=== PATIENT | male | born 1950 | race Caucasian/White ===

== ENCOUNTER 2019-04-14 11:48 | Outpatient (REF) | payer MEDICARE, SELFPAY ==
[2019-04-14 21:57] LABS: Anion Gap 12.1 mmol/L (3-11); BUN 23 mg/dL (7-18); CO2 24.9 mmol/L (21.0-32.0); CREATININE 0.91 mg/dL (0.70-1.30); Calcium 9.4 mg/dL (8.5-10.1); Chloride 103 mmol/L (98-107); Glucose 90 mg/dL (70-100); Potassium 4.5 mmol/L (3.5-5.1); Sodium 140 mmol/L (136-145)
== END 2019-04-14 12:08 ==
LOC: NCHCN 11:48
PROVIDERS: Visit Provider Internal Medicine
DX: I10 Essential (primary) hypertension (principal)
CPT/HCPCS: 80048

== ENCOUNTER 2020-08-19 15:06 | Outpatient (REF) | payer MEDICARE, BC, SELFPAY ==
[2020-08-19 21:45] LABS: Anion Gap 5.8 mmol/L (3-11); BUN 21 mg/dL (7-18); CO2 27.2 mmol/L (21.0-32.0); CREATININE 1.11 mg/dL (0.70-1.30); Calcium 9.1 mg/dL (8.5-10.1); Calculated LDL 118 mg/dL (<100); Chloride 103 mmol/L (98-107); Cholesterol 230 mg/dL (<200); Glucose 120 mg/dL (74-106); HDL Cholesterol 98 mg/dL (40-60); Potassium 4.9 mmol/L (3.5-5.1); Sodium 136 mmol/L (136-145); Triglyceride 70 mg/dL (<150)
[2020-08-22 11:10] LABS: PSA, Screening 1.1 ng/mL (0.0-4.5)
== END 2020-08-19 15:26 ==
LOC: NCHCN 15:06
PROVIDERS: Visit Provider Internal Medicine
DX: I10 Essential (primary) hypertension (principal); Z13.6 Encounter for screening for cardiovascular disorders; Z12.5 Encounter for screening for malignant neoplasm of prostate
CPT/HCPCS: 80048; 80061; 84153

== ENCOUNTER 2021-08-11 15:18 | Outpatient (REF) | payer MEDICARE, SELFPAY ==
[2021-08-11 16:07] LABS: Anion Gap 5.1 mmol/L (3-11); BUN 18 mg/dL (7-18); CO2 28.9 mmol/L (21.0-32.0); CREATININE 0.9 mg/dL (0.70-1.30); Calcium 8.8 mg/dL (8.5-10.1); Chloride 103 mmol/L (98-107); Glucose 85 mg/dL (74-106); Potassium 4.8 mmol/L (3.5-5.1); Sodium 137 mmol/L (136-145)
== END 2021-08-11 15:19 | disposition home or self-care (01) ==
LOC: NCHCN 15:18
PROVIDERS: Visit Provider Internal Medicine
DX: I10 Essential (primary) hypertension (principal)
CPT/HCPCS: 80048

== ENCOUNTER 2022-08-16 13:56 | Outpatient (REF) | payer MEDICARE, SELFPAY ==
[2022-08-16 17:05] LABS: Anion Gap 9.2 mmol/L (3-11); BUN 17 mg/dL (7-18); CO2 25.8 mmol/L (21.0-32.0); CREATININE 0.9 mg/dL (0.70-1.30); Calculated LDL 124 mg/dL (<100); Chloride 101 mmol/L (98-107); Cholesterol 220 mg/dL (<200); Estimated GFR 91.31 (mL/min/1.73m2); Glucose 92 mg/dL (74-106); HDL Cholesterol 88 mg/dL (40-60); Sodium 136 mmol/L (136-145); Triglyceride 41 mg/dL (<150)
== END 2022-08-16 13:57 | disposition home or self-care (01) ==
LOC: NCHCN 13:56
PROVIDERS: Visit Provider Internal Medicine
DX: I10 Essential (primary) hypertension (principal); Z13.220 Encounter for screening for lipoid disorders; Z00.00 Encounter for general adult medical examination without abnormal findings
CPT/HCPCS: 80048; 80061

== ENCOUNTER 2022-08-24 14:14 | Outpatient (REF) | payer MEDICARE, SELFPAY ==
[2022-08-24 15:42] LABS: Abs Immature Grans 0.01 10^3/uL (0.0-0.06); Absolute Basophil Count 0.05 10^3/uL (0.0-0.2); Absolute Eosinophil Count 0.41 10^3/uL (0.0-0.7); Absolute Lymphocyte Count 1.89 10^3/uL (1.2-3.4); Absolute Monocyte Count 0.61 10^3/uL (0.1-0.8); Absolute Neutrophil Count 1.75 10^3/uL (1.2-6.7); Basophils % 1.1; Eosinophils % 8.7; HCT 40.5 % (40.0-50.0); HGB 13.6 g/dL (13.5-17.5); Immature Grans % 0.2; MCH 33.3 pg (27.0-33.0); MCHC 33.6 % (32.0-36.0); MCV 99 fL (80-95); MPV 10.3 fL (8.0-11.0); Monocytes % 12.9; Neutrophils % 37.1; Platelet Count 288 10^3/uL (130-400); RBC 4.08 10^6/uL (4.36-5.78); RDW 12.5 % (11.8-14.1); RDW-SD 45.3 fL; WBC 4.72 10^3/uL (4.4-10.8)
== END 2022-08-24 14:15 | disposition home or self-care (01) ==
LOC: NCHCN 14:14
PROVIDERS: Visit Provider Internal Medicine
DX: R53.83 Other fatigue (principal)
CPT/HCPCS: 85025

== ENCOUNTER 2023-09-27 18:14 | Outpatient (REF) | payer MEDICARE, SELFPAY ==
[2023-09-27 14:19] LABS: Anion Gap 8.9 mmol/L (3-11); BUN 22 mg/dL (7-18); CO2 26.1 mmol/L (21.0-32.0); Calcium 8.9 mg/dL (8.5-10.1); Calculated LDL 88 mg/dL (<100); Chloride 104 mmol/L (98-107); Cholesterol 201 mg/dL (<200); Estimated GFR 79.97 (mL/min/1.73m2); Glucose 92 mg/dL (74-106); HDL Cholesterol 108 mg/dL (40-60); Potassium 4.3 mmol/L (3.5-5.1); Sodium 139 mmol/L (136-145); Triglyceride 27 mg/dL (<150)
== END 2023-09-27 18:15 | disposition home or self-care (01) ==
LOC: NCHCN 18:14
PROVIDERS: Visit Provider Internal Medicine
DX: E78.5 Hyperlipidemia, unspecified (principal)
CPT/HCPCS: 80048; 80061

== ENCOUNTER 2024-09-18 16:30 | Outpatient (REF) | payer MEDICARE, SELFPAY ==
--- OUTSIDE RECORDS SUMMARY | 2024-09-18 16:32 | XMS_ITS | Data Portability ---
Author Organization [place] - [facility] Address [place] [address] Care Team Providers Care Store Operations Specialist Name Role Phone [facility] Physical Chemist [phone] Assessment Encounter Date Assessment Date Assessment LastModified by Organization Details LastModified Time 10/02/2023 10/02/2023 Patient presented to office today for their Medicare Annual Wellness Visit. Doing well with healthy habits, advised limiting beer/wine to avg 7 drinks per week. Emphasized preventive health measures and educated pt on fall prevention and community-based lifestyle interventions to help reduce health risks and promote healthy living. Personalized prevention plan (PPP) completed and reviewed with patient. Patient was given copy of PPP at conclusion of visit. [email or web address] Not available 10/02/2023 11:04:40 Plan of Treatment Reminders Order Date Submit Date Provider Last Modified By Organization Details Last Modified Time Details Appointments Nurse Visit 20 2023 02:20P M Anirudh Nursing Staff Not available Not available Not available Medicare Wellness 40 (Subs) 2023 08:20A M MANOJ GARCIA, Not available Not available Not available Lab lipid panel, serum 2022 023 [email or web address] [facility] (Registration ), [address] [place] [address] [place], [address], 09/27/2023 08:26:51 BMP, serum or plasma 2022 023 [facility] (Registration ), [address] [place] [address] [place], [address], 09/27/2023 12:08:37 CMP, serum or plasma 2022 024 [email or web address] [facility], [address] [facility], [place], [address], 10/02/2023 11:06:12 BMP, serum or plasma 2023 024 [email or web address] [facility] (Registration ), [address] [place] [address] [place], [address], 09/18/2024 15:29:57 Referral None recorded. Procedures colonosco py procedure (PROC) - due for screening colo in [address] General Surgery, [address] [place] [address], [address], 07/30/2024 09:45:24 Surgeries None recorded. Imaging None recorded. Medication Orders None recorded. Patient TargetsNo targets recorded. Patient Instructions Encounter Date Encounter Id Patient Instructions Last Modified By Organization Details Last Modified Time 10/02/2023 [id number] medicare preventive services guide (male 74 rs and under) Not available 10/02/2023 10:50:47 Try to limit alcohol to 1 drink per night Keep an eye on the blood pressure use debrox for the right ear Not available 10/02/2023 11:03:16 Reason for Referral None Reported. Results Created Date Observation Date Name Description Value Unit Range Abnormal Flag Note LastModifiedBy Organization Detail LastModifiedTime 09/27/2009/27/2023 BASIC METAB OLIC PANEL calcium 8.9 mg/dL 8.5-10 .1 normal Not Available [address] [place], [address] 09/27/2023 14:22:38 09/27/20 23 09/27/2023 BASIC METAB OLIC PANEL glucose 92 mg/dL 74-106 normal Not Available Jarek devi [address] [place], [address] 09/27/2023 14:22:38 09/27/20 23 09/27/2023 BASIC METAB OLIC PANEL BUN 22 mg/dL 7-18 high Not Available Jarek devi [address] [place], [address] 09/27/2023 14:22:38 09/27/20 23 09/27/2023 BASIC METAB OLIC PANEL creatinine 1.0 mg/dL 0.70-1 .30 normal Not Available [address] [place], [address] 09/27/2023 14:22:38 09/27/20 23 09/27/2023 BASIC METAB OLIC PANEL estimated GFR 79.97 mL/min /1.73m 2 The eGFR is calcu lated from a serum creat inine using the CKD-E PI 2020 equat ion. Other varia bles requi red for the equat ion are gende r and age; this equat ion does not inclu de a race coeff icien t. This equat ion has simil ar overa ll perfo rmanc e to previ ous equat ions excep t value s may diffe r, in parti cular , in patie nts with highe r value s of eGFR and young er-ag ed adult s. Not Available [address] [place], [address] 09/27/2023 14:22:38 09/27/20 23 09/27/2023 BASIC METAB OLIC PANEL sodium 139 mmol/ L 136-14 5 normal Not Available [address] [place], [address] 09/27/2023 14:22:38 09/27/20 23 09/27/2023 BASIC METAB OLIC PANEL potassium 4.3 mmol/ L 3.5-5. 1 normal Not Available [address] [place], [address] 09/27/2023 14:22:38 09/27/20 23 09/27/2023 BASIC METAB OLIC PANEL chloride 104 mmol/ L 98-107 normal Not Available [address] [place], [address] 09/27/2023 14:22:38 09/27/20 23 09/27/2023 BASIC METAB OLIC PANEL CO2 26.1 mmol/ L 21.0-3 2.0 normal Not Available [address] [place], [address] 09/27/2023 14:22:38 09/27/20 23 09/27/2023 BASIC METAB OLIC PANEL anion gap 8.9 mmol/ L 3-11 normal Not Available [address] [place], [address] 09/27/2023 14:22:38 09/27/20 23 09/27/2023 LIPID 2 cholesterol 201 mg/dL <200 high Not Available [address] [place], [address] 09/27/2023 14:22:39 09/27/20 23 09/27/2023 LIPID 2 triglyceride 27 mg/dL <150 Not Available [address] [place], [address] 09/27/2023 14:22:39 09/27/20 23 09/27/2023 LIPID 2 HDL cholesterol 108 mg/dL 40-60 Not Available [facility] [address] [place], [address] 09/27/2023 14:22:39 09/27/20 23 09/27/2023 LIPID 2 calculated LDL 88 mg/dL <100 Natio nal Naomi stero l Educa tion Progr am (NCEP -ATPI II) class ifica tions : Naomi stero l <200 mg/dL Kathy able Naomi stero l 200-2 39 mg/dL Borde rline High Naomi stero l >or=2 40 mg/dL High HDL <40 mg/dL Low HDL >or=6 0 mg/dL High LDL <100 mg/dL Optim al LDL 100-1 29 mg/dL Near Optim al/Ab ove Optim al LDL 130-1 59 mg/dL Borde rline High LDL 160-1 89 mg/dL High LDL >or=1 90 mg/dL Very High *The above refer ence range is for adult s 18 years or older . Not Available [address] [place], [address] 09/27/2023 14:22:39 09/27/20 23 09/27/2023 lipid panel , blood cholesterol, total, serum 201 mg/dL <200 high Not Available Not Available 05/29/2024 23:27:50 09/27/20 23 09/27/2023 lipid panel , blood HDL 108 mg/dL 40-60 Not Available Not Availa ble 05/29/2024 23:27:50 09/27/20 23 09/27/2023 lipid panel , blood LDL 88 mg/dL <100 Not Available Not Availa ble 05/29/2024 23:27:50 09/27/20 23 09/27/2023 lipid panel , blood triglyceride , 12H fasting, qn, serum or plasma 27 mg/dL <150 Not Available Not Available 11/2023 23:27:50 09/27/20 23 09/27/2023 gluco se, QN [mass /volu me], blood glucose ser 92 mg/dL 74-106 normal Not Available [facility] [address], [place], [address], 05/29/2024 23:27:49 09/27/20 23 09/27/2023 CMP, serum or plasm a aniongap 8.9 mmol/ L 3-11 normal Not Available Not Available 05/29/20 23:27:39 09/27/2009/27/2023 CMP, serum or plasm a BUN (blood urea nitrogen), serum or plasma 22 mg/dL 7-18 high Not Available Not Available 11/2023 23:27:39 09/27/20 23 09/27/2023 CMP, serum or plasm a calcium, qn, serum or plasma 8.9 mg/dL 8.5-10 .1 normal Not Available Not Available 05/29/2024 23:27:39 09/27/20 23 09/27/2023 CMP, serum or plasm a chloride, serum or plasma 104 mmol/ L 98-107 normal Not Available Not Available 05/29/20 23:27:39 09/27/20 23 09/27/2023 CMP, serum or plasm a CO2, (carbon dioxide), total, serum or plasma 26.1 mmol/ L 21.0-3 2.0 normal Not Available Not Available 05/29/2024 23:27:39 09/27/20 23 09/27/2023 CMP, serum or plasm a creatinine, serum or plasma 1.0 mg/dL 0.70-1 .30 normal Not Available Not Available 05/29/2024 23:27:39 09/27/20 23 09/27/2023 CMP, serum or plasm a eGFR 79.97 (?) mL/mi n/1.7 3m2 mL/min /1.73m 2 Not Available Not Available 05/29/2024 23:27:39 09/27/20 23 09/27/2023 CMP, serum or plasm a potassium, serum or plasma 4.3 mmol/ L 3.5-5. 1 normal Not Available Not Available 05/29/2024 23:27:39 09/27/20 23 09/27/2023 CMP, serum or plasm a sodium, serum or plasma 139 mmol/ L 136-14 5 normal Not Available Not Available 05/29/2024 23:27:39 07/10/20 24 09/06/2022 US, aorta No observ ation record ed. Not Available 07/10 01:04:09 07/10/20 24 12/10/2021 imagi ng/di agnos tic resul t No observ ation record ed. Not Available 07/10 01:04:10 07/10/20 24 12/07/2022 imagi ng/di agnos tic resul t No observ ation record ed. Not Available 07/10 01:04:12 07/10/20 24 12/26/2022 imagi ng/di agnos tic resul t No observ ation record ed. Not Available 07/10 01:04:13 07/10/20 24 01/23/2023 imagi ng/di agnos tic resul t No observ ation record ed. Not Available 07/10 01:04:14 07/10/20 24 12/06/2022 XR, shoul tanner, 2 or more view No observ ation record ed. Not Available 07/10 01:04:15 07/10/20 24 08/08/2022 XR, ankle , 3 or more view No observ ation record ed. Not Available 07/10 01:04:16 07/10/20 24 09/18/2021 imagi ng/di agnos tic resul t No observ ation record ed. Not Available 07/10 01:04:17 Result Notes None recorded. Problems Name Problem SNOMED Code Status Onset Date Resolution Date Notes Provider Name and Address Organization Details Recorded Time Allergy to bee venom 050870050 Active 2009 Problem Code: Z91.030; Problem Code Type: ICD-10; Not Available [facility] 3 04:14:25 [facility] hyperten kristen 26851491 Active 2016 Problem Code: I10; Problem Code Type: ICD-10; Not Available [facility] 3 04:14:25 Mitral valve regurgit ation 88064792 Active 2017 Problem Code: I34.0; Problem Code Type: ICD-10; Not Available [facility] 3 04:14:25 Mild intermit tent asthma 210582602 Active 2018 Problem Code: J45.20; Problem Code Type: ICD-10; Not Available [facility] 3 04:14:25 Erectile dysfunct ion 159285494 Active 2018 Problem Code: N52.9; Problem Code Type: ICD-10; Not Available [facility] 3 04:14:25 Screenin g for malignan t neoplasm of colon Completed 201810/29/2019 Problem Code: Z12.11; Problem Code Type: ICD-10; Not Available [facility] 3 04:14:25 Insect bite Completed 201903/19/2020 Not Available [facility] 3 04:14:26 Visual disturba nce 47344911 Active 2021 Problem Code: H53.9; Problem Code Type: ICD-10; Not Available [facility] 3 04:14:26 Pain of right shoulder joint 10478530544 406144 Active 2021 Problem Code: M25.511; Problem Code Type: ICD-10; Not Available [facility] 3 04:14:26 Adult health examinat ion Active 2021 Problem Code: Z00.00; Problem Code Type: ICD-10; Not Available [facility] 3 04:14:26 Hyperlip idemia 09027769 Active 2021 Problem Code: E78.5; Problem Code Type: ICD-10; Not Available [facility] 3 04:14:26 Lyme disease 32120630 Completed 201404/20/2019 Problem Code: A69.20; Problem Code Type: ICD-10; Not Available [facility] 3 04:14:31 Contact dermatit is 89481776 Completed 200907/24/2023 Problem Code: 692.89; Problem Code Type: ICD-9; Not Available [facility] 3 04:14:31 Screenin g for cardiova scular system disease Completed 201908/24/2022 Problem Code: Z13.6; Problem Code Type: ICD-10; Not Available [facility] 3 04:14:33 Hyperlip idemia screenin g Completed 202110/25/2022 Problem Code: Z13.220; Problem Code Type: ICD-10; Not Available [facility] 3 04:14:34 Heart murmur 71835877 Completed 201707/24/2023 Problem Code: R01.1; Problem Code Type: ICD-10; Not Available [facility] 3 04:14:37 Fracture of clavicle 05655294 Active 2022 MANOJ GARCIA MD [address], [place], [address] , [facility] 3 15:49:05 Problem Notes None recorded. Procedures Surgical History None recorded. Imaging Results Imaging Date Name Status LastModified by Organiz ation Details LastModified Time 09/06/2022 US, aorta completed Information no t available 07/10/2024 01:04:12/10/2021 imaging/diag nostic result completed Information not available 07/10/2024 01:04:10 12/07/2022 imaging/diag nostic result completed Information not available 07/10/2024 01:04:12 12/26/2022 imaging/diag nostic result completed Information not available 07/10/2024 01:04:13 01/23/2023 imaging/diag nostic result completed Information not available 07/10/2024 01:04:14 12/06/2022 XR, shoulder, 2 or more view completed Information not available 07/10/2024 01:04:15 08/08/2022 XR, ankle, 3 or more view completed Information not available 07/10/2024 01:04:16 09/18/2021 imaging/diag nostic result completed Information not available 07/10/2024 01:04:17 Procedure Notes None recorded. Medical Equipment None Reported. Allergies Allergen ID Allergen Name Allergen Category Reaction Reaction Severity Criticality Documentation Date Start Date Code Code System Note Provider Name and Address Organization Details Recorded Time 65023 neomycin sulfate medicatio n Not available Not available Not available 09/06/20232005 7300 RxNorm Not Available [facility] 16:25:57 Medications Name Sig Start Date Stop Date Status Note LastModified by Organization Details LastModified Time atorvastatin 20 mg tablet TAKE 1 TABLET BY MOUTH EVERY NIGHT 2023 active Not Available Not Available Not Avai lable lisinopril 20 mg tablet TAKE 1 TABLET BY MOUTH EVERY DAY 2023 active Not Available Not Available Not Avai lable sildenafil 100 mg tablet Take 1 tablet by mouth as needed 2021 active Not Available Not Available Not Avai lable hydrocodone-a cetaminophen 500-5 mg tablet 1 TID 07/27 completed Not Available Not Available Not Available cephalexin 500 mg tablet 1 TAB TID 07/27 completed Not Available Not Available Not Available doxycycline hyclate 100 mg tablet 1 twice daily 08/10 completed Not Available Not Available Not Available lisinopril 20 mg active Not Available Not Av ailable Not Available ProAir HFA 90 mcg/actuation aerosol inhaler Inhale 2 puffs by mouth every 4 hours as needed 2014 active Not Available Not Available Not Avai lable ProAir HFA 2p qid 2014 active Not Available Not Available Not Avai lable Vitals Date Recorded Body height Body temperature Oxygen saturation Oxygen saturation in Arterial blood by Pulse oximetry Heart rate Body mass index (BMI) Body weight Systolic blood pressure Diastolic blood pressure Provider Name and Address Organization Details Last Updated DateTime 3 178.44 cm 97.2 [degF] 99 % 99 % 81 /min 19.6 kg/m2 81552.0 3 g 150 mm[Hg] 84 mm[Hg] DALE CRAMER [place] [facility] 3 10:17:59 Social History Question Answer Notes LastModified by Organizat ion Details LastModified Time Tobacco Smoking Status Former Smoker smoked a pipe TIMO CRAMER [place] [facility], [facility] 10/02/2023 10:04:57 When Did You Quit Smoking? 16+yearssince lastcigarette [email or web address] Information not available 10/02/2023 Would You Say That, In General, Your Health Is Very Good [email or web address] Information not available 10/02/2023 How Often Does Anyone, Including Family, Physically Hurt You? Never [email or web address] Information not available 10/02/2023 How Often Does Anyone, Including Family, Insult Or Talk Down To You? Never [email or web address] Information no t available 10/02/2023 How Often Does Anyone, Including Family, Threaten You With Harm? Never [email or web address] Information not available 10/02/2023 How Often Does Anyone, Including Family, Scream Or Curse At You? Never [email or web address] Information not available 10/02/2023 Within The Past 12 Months, You Worried That Your Food Would Run Out Before You Got Money To Buy More. Never True [email or web address] Information n ot available 10/02/2023 Within The Past 12 Months, The Food You Bought Just Didn't Last And You Didn't Have Money To Get More. Never True [email or web address] Information n ot available 10/02/2023 How Hard Is It For You To Pay For The Very Basics Like Food, Housing, Medical Care, And Heating? Would You Say It Is: Not Hard At All [email or web address] Information not available 10/02/2023 In The Past 12 Months, Has Lack Of Reliable Transportation Kept You From Medical Appointments, Meetings, Work Or From Getting Things Needed For Daily Living? No [email or web address] Information not available 10/02/2023 What Is Your Housing Situation Today? I Have Housing. [email or web address] Information not available 10/02/2023 How Often In The Past Year Have You Used Marijuana (including Smoking, Vaping, Dabbing, Or Edibles)? Never [email or web address] Information not available 10/02/2023 How Often In The Past Year Have You Used Prescription Medications That Were Not Prescribed To You? Never [email or web address] Information n ot available 10/02/2023 How Often In The Past Year Have You Taken Your Own Prescription Medication More Than The Way It Was Prescribed Or For Different Reasons Than Its Intended Purpose? Never [email or web address] Information no t available 10/02/2023 How Often In The Past Year Have You Used Other Drugs (for Example, Heroin, Cocaine, Meth, Salvia, Inhalants)? Never [email or web address] Information not available 10/02/2023 During The Past Four Weeks Has Your Physical And Emotional Health Limited Your Social Activities With Family And Friends, Neighbors, Or Groups? Not At All [email or web address] Information not available 10/02/2023 During The Past Four Weeks, Was Someone Available To Help You If You Needed And Wanted Help? (For Example, If You [place] Very Nervous, Lonely, Or Blue; Got Sick And Had To Stay In Bed; Needed Someone To Talk To; Needed Help With Daily Chores; Or Needed Help Just Taking Care Of Yourself.) Yes- As Much As I Wanted [email or web address] Information not available 10/02/2023 During The Past Four Weeks, What Was The Hardest Physical Activity You Could Do For At Least 2 Minutes? Very Heavy [email or web address] Information not available 10/02/2023 Can You Get To Places Out Of Walking Distance Without Help? (For Example, Can You Travel Alone On Buses Or Taxis, Or Drive Your Own Car?) Yes [email or web address] Information not available 10/02/2023 Can You Go Shopping For Groceries Or Clothes Without Someone? s Help? Yes [email or web address] Information not available 10/02/2023 Can You Prepare Your Own Meals? Yes [email or web address] Information not available 10/02/2023 Can You Do Your Housework Without Help? Yes [email or web address] Information not available 10/02/2023 Because Of Any Health Problems, Do You Need The Help Of Another Person With Your Personal Care Needs Such As Eating, Bathing, Dressing, Or Getting Around The House? No [email or web address] Information not available 10/02/2023 Can You Handle Your Own Money Without Help? Yes [email or web address] Information not available 10/02/2023 Are You Having Difficulties Driving Your Car? No [email or web address] Information no t available 10/02/2023 Do You Always Fasten Your Seat Belt When You Are In A Car? Yes- Usually Information not available 10/02/2023 How Often During The Past Four Weeks Have You Been Bothered By Any Of The Following Problems? Falling Or Dizzy When Standing Up? Sometimes [email or web address] Information not available 10/02/2023 Trouble Eating Well? Never [email or web address] Information not available 10/02/2023 Teeth Or Denture Problems? Never [email or web address] Information not available 10/02/2023 Problems Using The Telephone? Never Information not available 10/02/2023 Tiredness Or Fatigue? Never [email or web address] Information not available 10/02/2023 Have You Had 2 Or More Falls Or Sustained An Injury With A Fall In The Last Year? Yes [email or web address] Information no t available 10/02/2023 Do You Have Difficulty With Walking Or Balance? No [email or web address] Information not available 10/02/2023 Do You Currently Use A Hearing Device? No [email or web address] Information not available 10/02/2023 Do You Exercise For About 20 Minutes Three Or More Days A Week? Yes- Most Of The Time [email or web address] Information not available 10/02/2023 Are There Any Safety Concerns In Your Home (see Attached CDC Pamphlet)? No [email or web address] Information not available 10/02/2023 How Often Do You Have Trouble Taking Medicines The Way You Have Been Told To Take Them? I Always Take Them As Prescribed [email or web address] Information not available 10/02/2023 How Confident Are You That You Can Control And Manage Most Of Your Health Problems? Very Confident Information not available 10/02/2023 Do You Currently Have Any Difficulty With Your Hearing? No [email or web address] Information not available 10/02/2023 Do You Or Have You Ever Used Any Other Forms Of Tobacco Or Nicotine? No [email or web address] Information not available 10/02/2023 Sex: Male Functional Status None recorded. Mental Status None recorded. Family History Relationship Description Onset Age of this Age Resolved Age Notes LastModified by Organization Details LastModified Time Mother Family history of stroke [email or web address] Not available 2022 03:50:08 Notes:*Problem: Mother: Dece ased, age 86, CVA Father: , age 96 Sisters: 1, younger and well Brothers: 1, younger and well Medical History No medical history recorded. Immunizations Vaccine Type Date Status Provider Name and Address Organization Details Recorded Time Td (adult), 2 Lf tetanus toxoid, preservative free, adsorbed 04/20/2019 completed Not Available [facility] 09/06/2023 05:20:09 zoster live 01/08/2013 completed Not Available [facility] 09/06/2023 05:20:10 Pneumococcal conjugate PCV 13 04/20/2019 completed Not Available [facility] 09/06/2023 05:20:10 Td(adult) unspecified formulation 11/07/2007 completed Not Available [facility] 09/06/2023 05:20:10 Influenza, adjuvanted, trivalent, PF 08/15/2018 completed Not Available [facility] 09/06/2023 05:20:11 zoster recombinant 01/28/2019 completed Not Available [facility] 09/06/2023 05:20:11 zoster recombinant 08/15/2018 completed Not Available [facility] 09/06/2023 05:20:11 zoster recombinant 09/16/2018 completed Not Available [facility] 09/06/2023 05:20:11 Influenza, high-dose, quadrivalent, PF 08/11/2021 completed Not Available [facility] 09/06/2023 05:20:11 Influenza, high-dose, quadrivalent, PF 08/19/2020 completed Not Available [facility] 09/06/2023 05:20:11 Influenza, high-dose, quadrivalent, PF 08/24/2022 completed Not Available [facility] 09/06/2023 05:20:11 COVID-19, mRNA, LNP-S, PF, 100 mcg/0.5mL dose or 50 mcg/0.25mL dose 12/28/2020 completed Not Available [facility] 09/06/2023 05:20:12 COVID-19, mRNA, LNP-S, PF, 100 mcg/0.5mL dose or 50 mcg/0.25mL dose 01/25/2021 completed Not Available [facility] 09/06/2023 05:20:12 COVID-19, mRNA, LNP-S, PF, 100 mcg/0.5mL dose or 50 mcg/0.25mL dose 08/21/2021 completed Not Available [facility] 09/06/2023 05:20:12 pneumococcal polysaccharide PPV23 08/19/2020 completed Not Available [facility] 2022 05:20:13 influenza, unspecified formulation 10/06/2019 completed Not Available [facility] 09/06/2023 05:20:13 influenza, unspecified formulation 07/28/2023 completed CARLOS HARRISON [facility] 10/02/2023 12:17:05 SARS-COV-2 (COVID-19) vaccine, UNSPECIFIED 07/28/2023 completed [facility] HARRISON [facility] 10/02/2023 12:17:16 Past Encounters Encounter ID Performer Location Encounter Start Date Encounter Closed Date Diagnosis/Indication Diagnosis SNOMED-CT Code Diagnosis ICD10 Code [id number] Roxy Hugginsd [address] [address] 09/27/2023 07:34:37 09/27/2023 08:00:57 Hyperlipidemia 10548584 E78.5 [id number] MANOJ GARCIA MD [address] [address] 10/02/2023 09:50:34 10/02/2023 11:00:07 Essential hypertension 21425476 I10 Hyperlipidemia 40245231 E78.5 Adult heal th examination 220207225 Z00.00 Mitral pamela ve regurgitation 64403182 I34.0 Screening for malignant neoplasm of colon 222549185 Z12.11 [id number] LAZ COLLIER LPN [facility] [address] [place] [address] 09/18/2024 13:59:51 09/18/2024 14:50:16 Essential hypertension 70112824 I10 Health Concerns Section Related Observation LastModified by Organization Detai ls LastModified Time None Recorded Concern Status LastModified by Organization Details LastModified Time None Recorded Advance Directives Directive None Recorded Payers Encounter Date Sequence Insurance Name Policy Number Policy Neff Covered Member ID Neff Member ID Guarantor Name 09/27/2023 1 [place] - [place]PO) [id number] Omar Avitia Armando [id number] Omar Roberts 10/02/2023 1 [place]) [id number] Omar Sadi Armando [id number] Omar Roberts 09/18/2024 1 [place]) [id number] Omar Avitia Armando [id number] Omar Sadi Armando Notes Date Note Type Note Provider Name and Address Organization Details Recorded Time 10/02/2023 text/html Medicare Annual Wellness VisitReported bypatient.Diet and Nutrition:follows recommended diet; raises most of their own food in garden Fracture Risk:broken clavicle both sides different incident each time Physical Activity:exercises on a regular basis; 2-3 hours each day, fitness class once a week as well Depression Risk:no loss of interest in activities; no feelings of worthlessness or guilt; no thoughts of suicide Orientation:oriente d to person, place, time Concentration and Memory:no decreased concentrating ability; no memory lapses or loss; does not forget words Speech/Motor difficulties:no speech difficulties; no difficulty expressing formulated concepts; no difficulty with fine manipulative tasks; no difficulty writing/copying Hearing:loss of hearing bilateral Vision:worse both distance and nearNotes:not interested in pursuing audiology eval at this time Omar is doing very well. Clavicle fractures healed well. curve correct worked well for ingrown toenail. No concerns. Remains very active with hiking, x-c skiing, no balance concerns.Usually has 2 beers or 2 glasses of wine nightly. 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 MANOJ GARCIA MD [address], [place], [address], [facility]. 10/02/2023 11:52:13
--- OUTSIDE RECORDS SUMMARY | 2024-09-18 16:32 | XMS_ITS ---
Author Organization Unknown Address [address] [place] [address] [phone] Phone Care Team Providers Care Rn Transport Name Role Phone REJI Manuel Attending Unavailable JOSE Dennis Primary Unavailable Social History Type Status Start Date End Date Code Code Syst em Smoking History Never smoker (Never Smoked) 568216582 SNOMED CT Sex Male Assessment You had the following problems:HYPERTENSIONHYPERCHOLESTEROLEMIA Hospital Discharge Instructions Should you have any questions prior to discharge, please contact a member of your healthcare team. If you have left the hospital and have any questions, please contact your primary care physician. Reason For Referral No Data Found Problems Problem Start Date Resolved Date Status Code Code System HYPERTENSION active 68240210 SNOMED- CT HYPERCHOLESTEROLEMIA active 57810212 SNOMED-CT Allergies and Adverse Reactions Allergy Substance Reaction Severity Start Date Concern Status Co de Code System NEOMYCIN Active 7299 RxNorm Plan of Treatment US ABDOMEN LIMITED 1 ORGAN 09/06/2022 US CAROTID BILAT 12/08/2021 Encounters Encounter Diagnosis Start Date Code Code Sys tem 10/25/2021 [id number] SNOMED-CT Personal Care Team Section Performer Name Performer Role Active Date Inactive Da te
--- OUTSIDE RECORDS SUMMARY | 2024-09-18 16:32 | XMS_ITS | Continuity of Care Document ---
Author Organization [place] - [facility] Address [address] [place] [address] Care Team Providers Care Concreting Supervisor Name Role Phone [facility] Line Walker [phone] Assessment No assessment recorded. Plan of Treatment Reminders Order Date Submit Date Provider Last Modified By Organization Details Last Modified Time Details Appointments Nurse Visit 2023 02:20P M [facility] Not available Not available Not available Medicare Wellness 40 (Subs) 2023 08:20A M MANOJ GARCIA, Not available Not available Not available Lab BMP, serum or plasma 2023 024 [email or web address] [facility] (Registration ), [address] [place] [address], [place], [address], 09/18/2024 15:29:57 Referral None recorded. Procedures None recorded. Surgeries None recorded. Imaging None recorded. Medication Orders None recorded. Patient TargetsNo targets recorded. Patient InstructionsNo instructions recorded. Reason for Referral None Reported. Problems Name Problem SNOMED Code Status Onset Date Resolution Date Notes Provider Name and Address Organization Details Recorded Time Allergy to bee venom 827536025 Active 2009 Problem Code: Z91.030; Problem Code Type: ICD-10; Not Available [facility] 3 04:14:25 [facility] kristen 46016735 Active 2016 Problem Code: I10; Problem Code Type: ICD-10; Not Available [facility] 3 04:14:25 Mitral valve regurgit ation 50230586 Active 2017 Problem Code: I34.0; Problem Code Type: ICD-10; Not Available [facility] 3 04:14:25 Mild intermit tent asthma 836862553 Active 2018 Problem Code: J45.20; Problem Code Type: ICD-10; Not Available [facility] 3 04:14:25 Erectile dysfunct ion 604800820 Active 2018 Problem Code: N52.9; Problem Code Type: ICD-10; Not Available [facility] 3 04:14:25 Screenin g for malignan t neoplasm of colon Completed 201810/29/2019 Problem Code: Z12.11; Problem Code Type: ICD-10; Not Available [facility] 3 04:14:25 Insect bite Completed 201903/19/2020 Not Available [facility] 3 04:14:26 Visual disturba nce 54285634 Active 2021 Problem Code: H53.9; Problem Code Type: ICD-10; Not Available [facility] 3 04:14:26 Pain of right shoulder joint 30625169169 905464 Active 2021 Problem Code: M25.511; Problem Code Type: ICD-10; Not Available [facility] 3 04:14:26 Adult health examinat ion Active 2021 Problem Code: Z00.00; Problem Code Type: ICD-10; Not Available [facility] 3 04:14:26 Hyperlip idemia 90887676 Active 2021 Problem Code: E78.5; Problem Code Type: ICD-10; Not Available [facility] 3 04:14:26 Lyme disease 40894869 Completed 201404/20/2019 Problem Code: A69.20; Problem Code Type: ICD-10; Not Available [facility] 3 04:14:31 Contact dermatit is 44977198 Completed 200907/24/2023 Problem Code: 692.89; Problem Code Type: ICD-9; Not Available [facility] 3 04:14:31 Screenin g for cardiova scular system disease Completed 201908/24/2022 Problem Code: Z13.6; Problem Code Type: ICD-10; Not Available [facility] 3 04:14:33 Hyperlip idemia screenin g Completed 202110/25/2022 Problem Code: Z13.220; Problem Code Type: ICD-10; Not Available [facility] 3 04:14:34 Heart murmur 42434463 Completed 201707/24/2023 Problem Code: R01.1; Problem Code Type: ICD-10; Not Available [facility] 3 04:14:37 Fracture of clavicle 95666302 Active 2022 MANOJ GARCIA MD [address], [place], [address] , [facility] 3 15:49:05 Problem Notes None recorded. Medical Equipment None Reported. Allergies Allergen ID Allergen Name Allergen Category Reaction Reaction Severity Criticality Documentation Date Start Date Code Code System Note Provider Name and Address Organization Details Recorded Time 22404 neomycin sulfate medicatio n Not available Not available Not available 09/06/20232005 7300 RxNorm Not Available [facility] 3 16:25:57 Medications Name Sig Start Date Stop [...] Available Not Available Not Avai lable Vitals None Recorded Social History Question Answer Notes LastModified by Organizat ion Details LastModified Time Tobacco Smoking Status Former Smoker smoked a pipe [facility]. 10/02/2023 10:04:57 When Did You Quit Smoking? 16+yearssince lastcigarricardo [email or web address] Information not available 10/02/2023 Would You Say That, In General, Your Health Is Very Good [email or web address] Information not available 10/02/2023 How Often Does Anyone, Including Family, Physically Hurt You? Never Information not available 10/02/2023 How Often Does Anyone, Including Family, Insult Or Talk Down To You? Never [email or web address] Information no t available 10/02/2023 How Often Does Anyone, Including Family, Threaten You With Harm? Never [email or web address] Information not available 10/02/2023 How Often Does Anyone, Including Family, Scream Or Curse At You? Never Information not available 10/02/2023 Within The Past 12 Months, You Worried That Your Food Would Run Out Before You Got Money To Buy More. Never True [email or web address] Information n ot available 10/02/2023 Within The Past 12 Months, The Food You Bought Just Didn't Last And You Didn't Have Money To Get More. Never True [email or web address] Information n ot available 10/02/2023 How Hard Is It For You To Pay For The Very Basics Like Food, Housing, Medical Care, And Heating? Would You Say It Is: Not Hard At All Information not available 10/02/2023 In The Past 12 Months, Has Lack Of Reliable Transportation Kept You From Medical Appointments, Meetings, Work Or From Getting Things Needed For Daily Living? No [email or web address] Information not available 10/02/2023 What Is Your Housing Situation Today? I Have Housing. [email or web address] Information not available 10/02/2023 How Often In The Past Year Have You Used Marijuana (including Smoking, Vaping, Dabbing, Or Edibles)? Never [email or web address] Information not available 10/02/2023 How Often In The Past Year Have You Used Prescription Medications That Were Not Prescribed To You? Never [email or web address] Information n ot available 10/02/2023 How Often In The Past Year Have You Taken Your Own Prescription Medication More Than The Way It Was Prescribed Or For Different Reasons Than Its Intended Purpose? Never [email or web address] Information no t available 10/02/2023 How Often In The Past Year Have You Used Other Drugs (for Example, Heroin, Cocaine, Meth, Salvia, Inhalants)? Never [email or web address] Information not available 10/02/2023 During The Past Four Weeks Has Your Physical And Emotional Health Limited Your Social Activities With Family And Friends, Neighbors, Or Groups? Not At All [email or web address] Information not available 10/02/2023 During The Past Four Weeks, Was Someone Available To Help You If You Needed And Wanted Help? (For Example, If You [place] Very Nervous, Lonely, Or Blue; Got Sick And Had To Stay In Bed; Needed Someone To Talk To; Needed Help With Daily Chores; Or Needed Help Just Taking Care Of Yourself.) Yes- As Much As I Wanted [email or web address] Information not available 10/02/2023 During The Past Four Weeks, What Was The Hardest Physical Activity You Could Do For At Least 2 Minutes? Very Heavy [email or web address] Information not available 10/02/2023 Can You Get To Places Out Of Walking Distance Without Help? (For Example, Can You Travel Alone On Buses Or Taxis, Or Drive Your Own Car?) Yes [email or web address] Information not available 10/02/2023 Can You Go Shopping For Groceries Or Clothes Without Someone? s Help? Yes Information not available 10/02/2023 Can You Prepare Your Own Meals? Yes [email or web address] Information not available 10/02/2023 Can You Do Your Housework Without Help? Yes [email or web address] Information not available 10/02/2023 Because Of Any Health Problems, Do You Need The Help Of Another Person With Your Personal Care Needs Such As Eating, Bathing, Dressing, Or Getting Around The House? No Information not available 10/02/2023 Can You Handle Your Own Money Without Help? Yes [email or web address] Information not available 10/02/2023 Are You Having Difficulties Driving Your Car? No [email or web address] Information no t available 10/02/2023 Do You Always Fasten Your Seat Belt When You Are In A Car? Yes- Usually [email or web address] Information not available 10/02/2023 How Often During The Past Four Weeks Have You Been Bothered By Any Of The Following Problems? Falling Or Dizzy When Standing Up? Sometimes Information not available 10/02/2023 Trouble Eating Well? Never Information not available 10/02/2023 Teeth Or Denture Problems? Never [email or web address] Information not available 10/02/2023 Problems Using The Telephone? Never [email or web address] Information not available 10/02/2023 Tiredness Or Fatigue? Never [email or web address] Information not available 10/02/2023 Have You Had 2 Or More Falls Or Sustained An Injury With A Fall In The Last Year? Yes [email or web address] Information no t available 10/02/2023 Do You Have Difficulty With Walking Or Balance? No [email or web address] Information not available 10/02/2023 Do You Currently Use A Hearing Device? No [email or web address] Information not available 10/02/2023 Do You Exercise For About 20 Minutes Three Or More Days A Week? Yes- Most Of The Time [email or web address] Information not available 10/02/2023 Are There Any Safety Concerns In Your Home (see Attached CDC Pamphlet)? No Information not available 10/02/2023 How Often Do You Have Trouble Taking Medicines The Way You Have Been Told To Take Them? I Always Take Them As Prescribed [email or web address] Information not available 10/02/2023 How Confident Are You That You Can Control And Manage Most Of Your Health Problems? Very Confident [email or web address] Information not available 10/02/2023 Do You Currently Have Any Difficulty With Your Hearing? No [email or web address] Information not available 10/02/2023 Do You Or Have You Ever Used Any Other Forms Of Tobacco Or Nicotine? No [email or web address] Information not available 10/02/2023 Sex: Male Functional [...] preservative free, adsorbed 04/20/2019 completed Not Available [facility] 09/06/2023 05:20:09 zoster live 01/08/2013 completed Not Available [facility] 09/06/2023 05:20:10 Pneumococcal conjugate PCV 13 04/20/2019 completed Not Available [facility] 09/06/2023 05:20:10 Td(adult) unspecified formulation 11/07/2007 completed Not Available [facility] 09/06/2023 05:20:10 Influenza, adjuvanted, trivalent, PF 08/15/2018 completed Not Available [facility] 09/06/2023 05:20:11 zoster recombinant 01/28/2019 completed Not Available [facility] 09/06/2023 05:20:11 zoster recombinant 08/15/2018 completed Not Available [facility] 09/06/2023 05:20:11 zoster recombinant 09/16/2018 completed Not Available [facility] 09/06/2023 05:20:11 Influenza, high-dose, quadrivalent, PF 08/11/2021 completed Not Available [facility] 09/06/2023 05:20:11 Influenza, high-dose, quadrivalent, PF 08/19/2020 completed Not Available [facility] 09/06/2023 05:20:11 Influenza, high-dose, quadrivalent, PF 08/24/2022 completed Not Available [facility] 09/06/2023 05:20:11 COVID-19, mRNA, LNP-S, PF, 100 mcg/0.5mL dose or 50 mcg/0.25mL dose 12/28/2020 completed Not Available [facility] 09/06/2023 05:20:12 COVID-19, mRNA, LNP-S, PF, 100 mcg/0.5mL dose or 50 mcg/0.25mL dose 01/25/2021 completed Not Available [facility] 09/06/2023 05:20:12 COVID-19, mRNA, LNP-S, PF, 100 mcg/0.5mL dose or 50 mcg/0.25mL dose 08/21/2021 completed Not Available [facility] 09/06/2023 05:20:12 pneumococcal polysaccharide PPV23 08/19/2020 completed Not Available [facility] 2022 05:20:13 influenza, unspecified formulation 10/06/2019 completed Not Available [facility] 09/06/2023 05:20:13 influenza, unspecified formulation 07/28/2023 completed [facility] 10/02/2023 12:17:05 SARS-COV-2 (COVID-19) vaccine, UNSPECIFIED 07/28/2023 completed [facility] 10/02/2023 12:17:16 Past Encounters Encounter ID Performer Location Encounter Start Date Encounter Closed Date Diagnosis/Indication Diagnosis SNOMED-CT Code Diagnosis ICD10 Code [id number] LAZ COLLIER LPN [address] [address] 09/18/2024 13:59:51 09/18/2024 14:50:16 Essential hypertension 66905608 I10 Health Concerns Section Related Observation LastModified by Organization Detai ls LastModified Time None Recorded Concern Status LastModified by Organization Details LastModified Time None Recorded Payers Encounter Date Sequence Insurance Name Policy Number Policy Neff Covered Member ID Neff Member ID Guarantor Name 09/18/2024 1 [place] - [place]PO) [id number] Omar Roberts [id number] Omar Roberts
--- OUTSIDE RECORDS SUMMARY | 2024-09-18 16:32 | XMS_ITS ---
Author Organization Unknown Address [address] [place] [address] [phone] Phone Care Team Providers Care Laydown Machine Operator Name Role Phone MANUELA Lopez Attending Unavailable REJI Manuel Physician Kilnman Unavailable JOSE Dennis Primary Unavailable Social History Type Status Start Date End Date Code Code Syst em Smoking History Never smoker (Never Smoked) 251014968 SNOMED CT Sex Male Assessment You had the following problems:HYPERTENSIONHYPERCHOLESTEROLEMIA Hospital Discharge Instructions Should you have any questions prior to discharge, please contact a member of your healthcare team. If you have left the hospital and have any questions, please contact your primary care physician. Reason For Referral No Data Found Procedures Procedure Name Date Status Code Code Syste m Tendon Sheath Incision 11/10/2021 completed 52471 CP T Problems Problem Start Date Resolved Date Status Code Code System HYPERTENSION active 34231632 SNOMED- CT HYPERCHOLESTEROLEMIA active 17926086 SNOMED-CT Allergies and Adverse Reactions Allergy Substance Reaction Severity Start Date Concern Status Co de Code System NEOMYCIN Active 7299 RxNorm Plan of Treatment US ABDOMEN LIMITED 1 ORGAN 09/06/2022 US CAROTID BILAT 12/08/2021 Encounters Encounter Diagnosis Start Date Code Code Sys tem Trigger finger, left middle finger 11/10/2021 SNOMED-CT Personal Care Team Section Performer Name Performer Role Active Date Inactive Da te
--- OUTSIDE RECORDS SUMMARY | 2024-09-18 16:33 | XMS_ITS ---
Author Organization Unknown Address [address] [place] [address] [phone] Phone Care Team Providers Care Fire Protection Engineering Technician Name Role Phone REJI Manuel Attending Unavailable JOSE Dennis Primary Unavailable Social History Type Status Start Date End Date Code Code Syst em Smoking History Never smoker (Never Smoked) 420133370 SNOMED CT Sex Male Assessment You had the following problems:HYPERTENSIONHYPERCHOLESTEROLEMIA Hospital Discharge Instructions Should you have any questions prior to discharge, please contact a member of your healthcare team. If you have left the hospital and have any questions, please contact your primary care physician. Reason For Referral No Data Found Problems Problem Start Date Resolved Date Status Code Code System HYPERTENSION active 63184073 SNOMED- CT HYPERCHOLESTEROLEMIA active 11944702 SNOMED-CT Allergies and Adverse Reactions Allergy Substance Reaction Severity Start Date Concern Status Co de Code System NEOMYCIN Active 7299 RxNorm Plan of Treatment US ABDOMEN LIMITED 1 ORGAN 09/06/2022 US CAROTID BILAT 12/08/2021 Encounters Encounter Diagnosis Start Date Code Code Sys tem Removal of suture 11/22/2021 06206740 SNOMED-CT Personal Care Team Section Performer Name Performer Role Active Date Inactive Da te
--- OUTSIDE RECORDS SUMMARY | 2024-09-18 16:33 | XMS_ITS ---
Author Organization Unknown Address [address] [place] [address] [phone] Phone Care Team Providers Care Glass Maker Name Role Phone MANUELA Lopez Attending Unavailable JOSE Dennis Primary Unavailable [facility] Date/Time: 11/08/2021 12:29 [facility] ID: [id number] [address] [place] [address], [id number] LOINC: 54526-4 Test Value Unit Reference Range Code Code System Flag Tier- SYMPTOMS SARS COV2 RNA: NEGATIVE REFERENCE RANGE: NEGAT 08823-3 L OINC Social History Type Status Start Date End Date Code Code Syst em Smoking History Never smoker (Never Smoked) 748855365 SNOMED CT Sex Male Assessment You had the following problems:HYPERTENSIONHYPERCHOLESTEROLEMIA Hospital Discharge Instructions Should you have any questions prior to discharge, please contact a member of your healthcare team. If you have left the hospital and have any questions, please contact your primary care physician. Reason For Referral No Data Found Problems Problem Start Date Resolved Date Status Code Code System HYPERTENSION active 97903969 SNOMED- CT HYPERCHOLESTEROLEMIA active 68631061 SNOMED-CT Allergies and Adverse Reactions Allergy Substance Reaction Severity Start Date Concern Status Co de Code System NEOMYCIN Active 7299 RxNorm Plan of Treatment US ABDOMEN LIMITED 1 ORGAN 09/06/2022 US CAROTID BILAT 12/08/2021 Encounters Encounter Diagnosis Start Date Code Code Sys tem Exposure to SARS-CoV-2 11/08/2021 323850195 SNOME D-CT Personal Care Team Section Performer Name Performer Role Active Date Inactive Da te
--- OUTSIDE RECORDS SUMMARY | 2024-09-18 16:34 | XMS_ITS ---
Author Organization Unknown Address [address] [place] [address] [phone] Phone Care Team Providers Care Senior Property Accountant Name Role Phone JOSE Dennis Attending Unavailable Results US AORTA SCREENING - Complet ed: 09/06/2022 09:24 LOINC: [facility] [place], [place] [address] PACS SAP BI ARCHITECT REPORT Patient Name: DILAN MOHAN MRN: Sex: : Age: [id number] M [id number] Account: Accession: Admit: StayType: [id number] 09/06/2022 O/P Ordered: Order ID: Submitted: Ordering Provider: 09/06/2022 08:30 [id number] [facility] MANOJ GARCIA Completed: Technologist: Resulted: 09/06/2022 09:24 ER 09/06/2022 09:36 Study Description: US AORTA SCREENING Study Reason:FORMER SMOKER TECHNIQUE: Dedicated Ultrasound of abdominal aorta COMPARISON: No exams were available for comparison FINDINGS: ABDOMINAL AORTA: There is no evidence of abdominal aortic aneurysm. Maximum diameter of the abdominal aorta is 2.4 cm proximally and the abdominal aortic distally in normal fashion. COMMON ILIAC ARTERIES: Visualized common iliac arteries are upper normal diameter. IMPRESSION: No evidence of abdominal aortic aneurysm. Report Digitally Signed by Braulio Benjamin on 09/06/2022 09:36 AM EST Social History Type Status Start Date End Date Code Code Syst em Smoking History Never smoker (Never Smoked) 007106157 SNOMED CT Sex Male Assessment You had the following problems:HYPERTENSIONHYPERCHOLESTEROLEMIA Hospital Discharge Instructions Should you have any questions prior to discharge, please contact a member of your healthcare team. If you have left the hospital and have any questions, please contact your primary care physician. Reason For Referral No Data Found Problems Problem Start Date Resolved Date Status Code Code System HYPERTENSION active 10266236 SNOMED- CT HYPERCHOLESTEROLEMIA active 38830830 SNOMED-CT Allergies and Adverse Reactions Allergy Substance Reaction Severity Start Date Concern Status Co de Code System NEOMYCIN Active 7299 RxNorm Plan of Treatment US ABDOMEN LIMITED 1 ORGAN 09/06/2022 US CAROTID BILAT 12/08/2021 Encounters Encounter Diagnosis Start Date Code Code Sys tem Encounter for screening for cardiovascular disorders 1 11/06/2021 SNOMED-CT Personal Care Team Section Performer Name Performer Role Active Date Inactive Da te
--- OUTSIDE RECORDS SUMMARY | 2024-09-18 16:34 | XMS_ITS ---
Author Organization Unknown Address [address] [place] [address] [phone] Phone Care Team Providers Care Degreasing Solution Mixer Name Role Phone CESARCORNELIA ARANDA Sonny Attending Unavailable Results US EXTRACRANIAL UNI LTD STUD Y - Completed: 12/08/2021 13:56 LOINC: CAROTID ULTRASOUND: Castaneda scale, color, and Doppler imaging of the carotid arteries on both sides of the neck was performed. Plaque is noted at the level of the carotid bulbs and proximal internal carotid arteries bilaterally. This both calcified and noncalcified. There are no associated significantly elevated velocities. Flow in both vertebral arteries was demonstrated to be antegrade. IMPRESSION: 1. There is plaque at the level of both carotid bulbs and proximal ICAs but without elevated velocities implying that amount of stenosis is estimated to be mild, less than 50%. 2. Flow is demonstrated to be antegrade in both vertebral arteries. Dictated by: JUDIT HERNANDEZ MD Transcribed by: PETER 12/09/2115:42 D Wednesday, December 08, 2021 3:31:17 PM [id number] Electronically Reviewed and Signed By: CHRIS HERNANDEZ MD 12/10/21 11:38 Copy for: 185 HEALTH INFORMATION MGMT Social History Type Status Start Date End Date Code Code Syst em Smoking History Never smoker (Never Smoked) 545216815 SNOMED CT Sex Male Assessment You had the following problems:HYPERTENSIONHYPERCHOLESTEROLEMIA Hospital Discharge Instructions Should you have any questions prior to discharge, please contact a member of your healthcare team. If you have left the hospital and have any questions, please contact your primary care physician. Reason For Referral No Data Found Problems Problem Start Date Resolved Date Status Code Code System HYPERTENSION active 22084674 SNOMED- CT HYPERCHOLESTEROLEMIA active 03628709 SNOMED-CT Allergies and Adverse Reactions Allergy Substance Reaction Severity Start Date Concern Status Co de Code System NEOMYCIN Active 7299 RxNorm Plan of Treatment US ABDOMEN LIMITED 1 ORGAN 09/06/2022 US CAROTID BILAT 12/08/2021 Encounters Encounter Diagnosis Start Date Code Code Sys tem Bilateral carotid artery occlusion 12/08/2021 752606 005 SNOMED-CT Personal Care Team Section Performer Name Performer Role Active Date Inactive Da te
--- OUTSIDE RECORDS SUMMARY | 2024-09-18 16:35 | XMS_ITS ---
Author Organization Unknown Address [address] [place] [address] [phone] Phone Care Team Providers Care Metal Alloy Scientist Name Role Phone AGUSTIN Carter Attending Unavailable JOSE Dennis Primary Unavailable Results XR CLAVICLE COMPLETE RIGHT - Completed: 12/26/2022 10:03 [facility] [place], [place] [address] PACS EXPERIMENTAL ELECTRONICS DEVELOPER REPORT Patient Name: DILAN MOHAN MRN: Sex: : Age: [id number] M 1950 72 Account: Accession: Admit: StayType: [id number] 12/26/2022 CLINIC Ordered: Order ID: Submitted: Ordering Provider: 12/26/2022 09:59 [id number] [facility] MELITON VELEZ Completed: Technologist: Resulted: 12/26/2022 10:03 CHARITY 12/26/2022 15:43 Study Description: XR CLAVICLE COMPLETE RIGHT Study Reason: Pain 2D digital imaging was performed. COMPARISON: Prior x-rays 12/07/2022 FINDINGS: Again noted is the fracture site in the lateral aspect of the right clavicle. No further displacement. Appearance is unchanged. No offset of the AC joint. Again noted is evidence of previous surgery in the ipsilateral shoulder with 3 fixation devices in the inferior osseous glenoid again noted. IMPRESSION: Stable appearance of the lateral clavicular fracture site Report Digitally Signed by Braulio Benjamin on 12/26/2022 03:43 PM EST Social History Type Status Start Date End Date Code Code Syst em Smoking History Never smoker (Never Smoked) 340574140 SNOMED CT Sex Male Assessment You had the following problems:HYPERTENSIONHYPERCHOLESTEROLEMIA Hospital Discharge Instructions Should you have any questions prior to discharge, please contact a member of your healthcare team. If you have left the hospital and have any questions, please contact your primary care physician. Reason For Referral No Data Found Problems Problem Start Date Resolved Date Status Code Code System HYPERTENSION active 37828910 SNOMED- CT HYPERCHOLESTEROLEMIA active 07302423 SNOMED-CT Allergies and Adverse Reactions Allergy Substance Reaction Severity Start Date Concern Status Co de Code System NEOMYCIN Active 7299 RxNorm Plan of Treatment US ABDOMEN LIMITED 1 ORGAN 09/06/2022 US CAROTID BILAT 12/08/2021 Encounters Encounter Diagnosis Start Date Code Code Sys tem Fracture of acromial end of clavicle 12/26/2022 7860 7406 SNOMED-CT Personal Care Team Section Performer Name Performer Role Active Date Inactive Da te
--- OUTSIDE RECORDS SUMMARY | 2024-09-18 16:35 | XMS_ITS | Encounter Summary ---
Author Organization [facility] Address [address] [place] [address] Care Team Providers Care Manager Trainee Name Role Phone Emerson Milton MD Primary Care Provide r Encounter Details Date Type Department Care Team (Late st Contact Info) Description 08/20/2020 Lab Requisition [facility] Pathology & Laboratory Medicine - [facility] [address], [place] [phone] Outr Resulting Lab, Provider Social History Tobacco Use Types Packs/Day Years Used Date Smoking Tobacco: Never Assessed Sex and Gender Information Value Date Recorded Sex Assigned at Not on file Legal Sex Male 18:04 EST Gender Identity Not on file Sexual Orientation Not on file documented as of this encounter Plan of Treatment Not on file documented as of this encounter Procedures Procedure Name Priority Date/Time Associated Diagnosis Comments PSA TOTAL, DIAGNOSTIC Routine 08/19/2020 14:05 EDT documented in this encounter Results * PSA TOTAL, DIAGNOSTIC (08/19/2020 14:05 EDT) PSA 1.1 0.0 - 4.5 ng/mL 08/22/2020 11:05 EDT [facility] Blood VENOUS BLOOD / Unknown 08/19/2020 14:05 EDT 08/21/2020 16:19 EDT Narrative [facility] - 08/22/2020 11:05 EDT NOTE: Serum PSA concentration should not be interpreted as absolute evidence for the presence or absence of malignant disease. Assayed on Siemens ADVIA Centaur XPT using chemiluminescent technology.??Values obtained by using different assay methods cannot be used interchangeably. us Provider Outr Resulting Lab CHEMISTRY & BLOOD GA S ORDERABLES Final Result [facility] [address] [place] [address] documented in this encounter Visit Diagnoses Not on filedocumented in this encounter Care Teams Manager Trainee Relationship Specialty Start Date End Date Emerson Milton MD PCP - General 09/19/15 documented as of this encounter
--- OUTSIDE RECORDS SUMMARY | 2024-09-18 16:35 | XMS_ITS ---
Author Organization Unknown Address [address] [place] [address] [phone] Phone Care Team Providers Care Operating Room Technologist Name Role Phone AGUSTIN Carter Attending Unavailable JOSE Dennis Primary Unavailable Results XR CLAVICLE COMPLETE RIGHT - Completed: 01/23/2023 13:32 LOINC: [facility] [place], [place] [address] PACS OIL PAINT SHADER REPORT Patient Name: DILAN MOHAN MRN: Sex: : Age: [id number] M 1950 72 Account: Accession: Admit: StayType: [id number] 01/23/2023 CLINIC Ordered: Order ID: Submitted: Ordering Provider: 01/23/2023 08:03 [id number] [facility] MELITON VELEZ Completed: Technologist: Resulted: 01/23/2023 13:32 NIRANJAN 01/23/2023 13:37 Study Description: XR CLAVICLE COMPLETE RIGHT Study Reason: RT CLAVICLE FX F/U 2 Views TECHNIQUE: 2D digital imaging was performed. COMPARISON: 26 December 2022 FINDINGS: There has been no change in the alignment of the distal radial fracture. No new findings. Report Digitally Signed by Daisy Ashley on 01/23/2023 01:37 PM EDT Social History Type Status Start Date End Date Code Code Syst em Smoking History Never smoker (Never Smoked) 421050540 SNOMED CT Sex Male Assessment You had the following problems:HYPERTENSIONHYPERCHOLESTEROLEMIA Hospital Discharge Instructions Should you have any questions prior to discharge, please contact a member of your healthcare team. If you have left the hospital and have any questions, please contact your primary care physician. Reason For Referral No Data Found Problems Problem Start Date Resolved Date Status Code Code System HYPERTENSION active 48003469 SNOMED- CT HYPERCHOLESTEROLEMIA active 75867875 SNOMED-CT Allergies and Adverse Reactions Allergy Substance Reaction Severity Start Date Concern Status Co de Code System NEOMYCIN Active 7299 RxNorm Plan of Treatment US ABDOMEN LIMITED 1 ORGAN 09/06/2022 US CAROTID BILAT 12/08/2021 Encounters Encounter Diagnosis Start Date Code Code Sys tem Fracture of acromial end of clavicle 01/23/2023 1881 4000 SNOMED-CT Personal Care Team Section Performer Name Performer Role Active Date Inactive Da te
--- OUTSIDE RECORDS SUMMARY | 2024-09-18 16:35 | XMS_ITS ---
Author Organization Unknown ALLERGIES AND ADVERSE REACTIONS No information ASSESSMENT No information CHIEF COMPLAINT No information MEDICATIONS No information OBJECTIVE DATA No information PHYSICAL EXAMINATION No information TREATMENT PLAN Planned Care Start Date Provider Encounter for Check-up [id number] PROBLEMS No information RESULTS No information REVIEW OF SYSTEMS No information SUBJECTIVE DATA No information VITAL SIGNS No information
--- OUTSIDE RECORDS SUMMARY | 2024-09-18 16:35 | XMS_ITS | Clinical Summary ---
Author Organization [facility] Address [address] [place] [address] Care Team Providers Care Cracker Dough Mixer Name Role Phone Emerson Milton MD Primary Care Provide r Social History Tobacco Use Types Packs/Day Years Used Date Smoking Tobacco: Never Assessed Sex and Gender Information Value Date Recorded Sex Assigned at Not on file Legal Sex Male 18:04 EST Gender Identity Not on file Sexual Orientation Not on file Plan of Treatment Health Maintenance Due Date Last Done Comments Hepatitis C Screen 1950 Fall Risk Screening 2016 COVID-19 Vaccine (2023- season) 2024 RSV Immunization ( o r 60+ Years) (1 - 1-dose 75+ series) 2026 Care Teams Cracker Dough Mixer Relationship Specialty Start Date End Date Emerson Milton MD PCP - General 09/19/15
--- OUTSIDE RECORDS SUMMARY | 2024-09-18 16:35 | XMS_ITS ---
Author Organization Unknown Address [address] [place] [address] [phone] Phone Care Team Providers Care Tube Station Attendant Name Role Phone REJI Manuel Attending Unavailable JOSE Dennis Primary Unavailable Results XR CLAVICLE COMPLETE RIGHT - Completed: 12/07/2022 15:39 LOINC: [facility] [place], [place] [address] PACS AIRPLANE MECHANIC REPORT Patient Name: DILAN MOHAN MRN: Sex: : Age: [id number] M 1950 72 Account: Accession: Admit: StayType: [id number] 12/07/2022 CLINIC Ordered: Order ID: Submitted: Ordering Provider: 12/07/2022 10:33 [id number] [facility] DIL[facility] MENDOZA Completed: Technologist: Resulted: 12/07/2022 15:39 MLL 12/07/2022 15:54 Study Description: XR CLAVICLE COMPLETE RIGHT Study Reason: RT CLAVICLE FX F/U 2D digital imaging was performed. COMPARISON: Prior x-rays 12/05/2022. FINDINGS: Again noted are 3 fasteners in the anterior inferior osseous glenoid Fracture of the lateral aspect of the clavicle appears unchanged. AC joint is not distracted. IMPRESSION: As above. Report Digitally Signed by Braulio Benjamin on 12/07/2022 03:54 PM EST Social History Type Status Start Date End Date Code Code Syst em Smoking History Never smoker (Never Smoked) 470089971 SNOMED CT Sex Male Assessment You had the following problems:HYPERTENSIONHYPERCHOLESTEROLEMIA Hospital Discharge Instructions Should you have any questions prior to discharge, please contact a member of your healthcare team. If you have left the hospital and have any questions, please contact your primary care physician. Reason For Referral No Data Found Problems Problem Start Date Resolved Date Status Code Code System HYPERTENSION active 75249099 SNOMED- CT HYPERCHOLESTEROLEMIA active 42513577 SNOMED-CT Allergies and Adverse Reactions Allergy Substance Reaction Severity Start Date Concern Status Co de Code System NEOMYCIN Active 7299 RxNorm Plan of Treatment US ABDOMEN LIMITED 1 ORGAN 09/06/2022 US CAROTID BILAT 12/08/2021 Encounters Encounter Diagnosis Start Date Code Code Sys tem 12/07/2022 [id number] SNOMED-CT Personal Care Team Section Performer Name Performer Role Active Date Inactive Da te
--- OUTSIDE RECORDS SUMMARY | 2024-09-18 16:35 | XMS_ITS | Referral Summary ---
Author Organization [facility] Address [address] [place] [address] Care Team Providers Care Diversional Therapist Name Role Phone Emerson Milton MD Primary Care Provide r Social History Tobacco Use Types Packs/Day Years Used Date Smoking Tobacco: Never Assessed Sex and Gender Information Value Date Recorded Sex Assigned at Not on file Legal Sex Male 18:04 EST Gender Identity Not on file Sexual Orientation Not on file Plan of Treatment Not on file Care Teams Diversional Therapist Relationship Specialty Start Date End Date Emerson Milton MD PCP - General 09/19/15
--- OUTSIDE RECORDS SUMMARY | 2024-09-18 16:35 | XMS_ITS ---
Author Organization Unknown Address [address] [place] [address] [phone] Phone Care Team Providers Care Furniture Removalist Name Role Phone CHAGO MANZO Registered Nurse Unavailable MICHAEL Guillen Attending Unavailable GEETA [facility] Unavailable JOSE Dennis Primary Unavailable UNLISTED PROVIDER - REQUESTED Xhandoff Un available Results XR SHOULDER 2V OR MORE RT* - Completed: 12/05/2022 20:27 LOINC: [place], [place] [address] PACS FUNERAL ATTENDANT REPORT Patient Name: DILAN MOHAN MRN: Sex: : Age: [id number] M 1950 72 Account: Accession: Admit: StayType: [id number] 12/05/2022 E/R Ordered: Order ID: Submitted: Ordering Provider: 12/05/2022 19:14 [id number] [address]NE Completed: Technologist: Resulted: 12/05/2022 20:27 JJ 12/06/2022 09:41 Study Description: XR SHOULDER 2V OR MORE RT* Study Reason: Trauma Technique: 2D digital imaging was performed. 5 images were obtained. COMPARISON: None. FINDINGS: Bones: There is an acute comminuted fracture of the distal right clavicle. No bony destructive lesion is seen. Postsurgical changes are seen in the glenoid. Joints: No dislocation is present. Soft tissues: Unremarkable. IMPRESSION: Acute distal clavicular fracture. Report Digitally Signed by Jin Dyer on 12/06/2022 09:41 AM EST Social History Type Status Start Date End Date Code Code Syst em Smoking History Never smoker (Never Smoked) 251733052 SNOMED CT Sex Male Vital Signs Vital Sign Value Unit [place] Value [place] [facility] Date/Time Recent/Initial? Code Code System Body Mass Index 18.31 kg/m2 12/05/2022 19:15 Initial 30216 -5 LOINC Systolic Blood Pressure 141 mm[Hg] 12/05/2022 19:15 Initial 8480- 6 LOINC Diastolic Blood Pressure 77 mm[Hg] 12/05/2022 19:15 Initial 8462- 4 LOINC Body Surface Area 1.76 m2 12/05/2022 19:15 Initial 3140- 1 LOINC Height 182.880 0 cm 72.00 in 12/05/2022 19:15 Initial 8302- 2 LOINC O2 Saturation 99 % 2022 19:15 Initial 35296 -5 LOINC Pulse 98.0 /min 12/05/2022 19:15 Initial 8867- 4 LOINC Respiration 16 /min 12/05/19 19:15 Initial 9279- 1 LOINC Temperature 36.7 Sonia 98.1 F 12/05/19 19:15 Initial 8310- 5 LOINC Weight 61.23 kg 135.00 lbs 12/05/2022 19:15 Initial 05584 -7 LOINC Assessment You had the following problems:HYPERTENSIONHYPERCHOLESTEROLEMIA Hospital Discharge Instructions Should you have any questions prior to discharge, please contact a member of your healthcare team. If you have left the hospital and have any questions, please contact your primary care physician. Reason For Referral No Data Found Problems Problem Start Date Resolved Date Status Code Code System HYPERTENSION active 84559794 SNOMED- CT HYPERCHOLESTEROLEMIA active 80675213 SNOMED-CT Allergies and Adverse Reactions Allergy Substance Reaction Severity Start Date Concern Status Co de Code System NEOMYCIN Active 7299 RxNorm Plan of Treatment US ABDOMEN LIMITED 1 ORGAN 09/06/2022 US CAROTID BILAT 12/08/2021 Encounters Encounter Diagnosis Start Date Code Code Sys tem 12/05/2022 [id number] SNOMED-CT Personal Care Team Section Performer Name Performer Role Active Date Inactive Da te
[2024-09-18 21:24] LABS: Anion Gap 5.8 mmol/L (3-11); BUN 24 mg/dL (7-18); CO2 29.2 mmol/L (21.0-32.0); CREATININE 1.1 mg/dL (0.70-1.30); Calcium 9.4 mg/dL (8.5-10.1); Chloride 103 mmol/L (98-107); Estimated GFR 70.88 (mL/min/1.73m2); Glucose 86 mg/dL (74-106); Potassium 4.8 mmol/L (3.5-5.1); Sodium 138 mmol/L (136-145)
== END 2024-09-18 16:31 | disposition home or self-care (01) ==
LOC: NCHCN 16:30
PROVIDERS: Visit Provider Internal Medicine
DX: I10 Essential (primary) hypertension (principal)
CPT/HCPCS: 80048

== ENCOUNTER 2025-10-06 07:55 | Outpatient (REF) | payer MEDICARE, SELFPAY ==
[2025-10-06 15:25] LABS: HCT 40.2 % (40.0-50.0); HGB 13.4 g/dL (13.5-17.5); MCH 32.5 pg (27.0-33.0); MCHC 33.3 % (32.0-36.0); MCV 98 fL (80-95); MPV 11.6 fL (8.0-11.0); Platelet Count 179 10^3/uL (130-400); RBC 4.12 10^6/uL (4.36-5.78); RDW 12.4 % (11.8-14.1); RDW-SD 44.8 fL; WBC 4.80 10^3/uL (4.4-10.8)
[2025-10-06 15:44] LABS: ALT 25 U/L (10-49); AST 34 U/L (<34); Albumin 4.3 g/dL (3.2-5.0); Alkaline Phosphatase 43 U/L (46-116); Anion Gap 6.3 mmol/L (3-11); BUN 23 mg/dL (9-23); Bilirubin, Total 0.8 mg/dL (0.2-1.2); CO2 26.7 mmol/L (20.0-31.0); Calcium 9.1 mg/dL (8.3-10.6); Chloride 107 mmol/L (98-107); Glucose 82 mg/dL (74-106); Potassium 4.3 mmol/L (3.5-5.1); Sodium 140 mmol/L (136-145); Total Protein 7.3 g/dL (5.7-8.2)
[2025-10-06 17:05] LABS: Cholesterol 189 mg/dL (<200); HDL Cholesterol 92 mg/dL (>40)
== END 2025-10-06 07:56 | disposition home or self-care (01) ==
LOC: NCHCN 07:55
PROVIDERS: Visit Provider Internal Medicine
DX: I10 Essential (primary) hypertension (principal); E78.5 Hyperlipidemia, unspecified
CPT/HCPCS: 80053; 80061; 85027

== ENCOUNTER 2025-10-27 09:45 | Outpatient (REF) | payer MEDICARE, SELFPAY ==
[2025-10-27 23:00] LABS: PSA, Screening 2.1 ng/mL (<=6.5)
== END 2025-10-27 09:46 | disposition home or self-care (01) ==
LOC: NCHCN 09:45
PROVIDERS: Visit Provider Internal Medicine
DX: Z12.5 Encounter for screening for malignant neoplasm of prostate (principal); N52.9 Male erectile dysfunction, unspecified
CPT/HCPCS: 84153; 84403